=== PATIENT | female | born 1975 | race Caucasian/White ===

== ENCOUNTER 2017-08-21 20:51 | Emergency (ER) | payer OTHER ==
[~2017-08-21] VITALS: Ht 165.1 cm; Wt 105.0 kg
[2017-08-21 20:54] VITALS: TEMP 36.7; Ht 165.1 cm; Wt 105.0 kg
--- NOTE | 2017-08-21 21:24 | DIAGNOSTIC IMAGING REPORT ---
LEFT SHOULDER 3 VIEWS HISTORY: left shoulder pain COMPARISON: None. FINDINGS: There is no fracture or dislocation. Soft tissues are unremarkable. The left clavicle is intact. IMPRESSION: No fracture or dislocation within the left shoulder. Electronically signed by: Black Austin M.D. 08/21/2017 9:23 PM Dictated Date/Time: 08/21/2017 9:22 PM
--- NOTE | 2017-08-21 21:32 | EMERGENCY ROOM VISIT NOTE ---
ED Visit Note First contact with patient: 20:58 I have seen and examined this patient with Aftab Richard and generally agree with the treatment plan as discussed. Allergies Coded Allergies: Penicillins (Verified Allergy, Unknown, 05/22/16) Uncoded Allergies: AMOXICILLIN (Allergy, Unknown, 12/18/02) FEATHERS (Allergy, Unknown, 07/17/02) Vital Signs Date Time Temp Pulse Resp B/P (MAP) Pulse Ox O2 Delivery O2 Flow Rate FiO2 08/21/17 20:54 36.7 111 18 174/114 98 Room Air Departure Information Referrals Cinthia Gramajo C.R.N.P. (PCP) Patient Instructions My [facility]
[2017-08-21] MEDS ORDERED: ACETAMINOPHEN 500 MG TAB PO STA (21:58)
[2017-08-21] MEDS ORDERED: IBUPROFEN 600 MG TAB PO STA (21:58)
[2017-08-21 22:10] VITALS: BP 174/98; PULSE 95; O2SAT 99
--- NOTE | 2017-08-21 23:43 | EMERGENCY ROOM VISIT NOTE ---
ED Visit Note First contact with patient: 20:58 CHIEF COMPLAINT: Shoulder pain HISTORY OF PRESENT ILLNESS: This 42-year-old female patient presents to the emergency department complaining of pain in the left shoulder for the past 2 days. There is some limitation of motion of the arm because of the pain. The pain is moderate, constant and increases with motion of the hand and arm. The patient states the pain is dull and 7/10. The patient has taken nothing for relief of the pain. No previous significant previous shoulder disease or injury. No numbness or tingling. No neck and no back pain. No chest pain or shortness of breath. No abdominal pain or nausea/vomiting. No cough. REVIEW OF SYSTEMS: A 6 system review of systems was performed with positives and pertinent negatives in the HPI. ALLERGIES: See EMR MEDICATIONS: See EMR PMH: See EMR SOCIAL HISTORY: Lives locally with family PHYSICAL EXAM: Vital Signs: Reviewed nurse's notes . GENERAL: White female, in no acute distress, but appears to be in pain, well-developed, well-nourished. MUSCULOSKELETAL: There is no deformity in the contour of the left shoulder and there are no jesse deformities noted. There is no sulcus sign. There is tenderness over the superior aspect of the supraspinatus into the lateral aspect of the deltoid. The patient's range of motion is mildly limited. Supraspinatus strength 4/5. There is no clavicle tenderness. No tenderness of the humerus, elbow, wrist, or hand. Olericulture Teacher strength 5/5. Radial pulse 2+. NECK: No tenderness to palpation over the cervical spine.. HEART: Regular rate and rhythm without murmurs gallops or rubs. LUNGS: Clear to auscultation bilaterally without wheezes, rales or rhonchi. No accessory muscle use. No retractions. NEURO: The patient is alert and oriented to person, place, and time. Normal sensation to light and sharp touch. Capillary refill less than 2 seconds. LEFT SHOULDER 3 VIEWS HISTORY: left shoulder pain COMPARISON: None. FINDINGS: There is no fracture or dislocation. Soft tissues are unremarkable. The left clavicle is intact. IMPRESSION: No fracture or dislocation within the left shoulder. EMERGENCY DEPARTMENT COURSE: Physical exam and history were performed. Nursing notes and EMR were reviewed. The patient has some left shoulder pain for the past few days. The pain is reproducible on palpation and with range of motion. X-rays were obtained and reviewed by myself and radiology as showing no acute fracture or dislocation. The case was discussed with my attending physician, Dr. Bess, who also independently evaluated the patient. She was given ibuprofen and Tylenol here in the department. She will be discharged home to follow with orthopedics. The patient does have an elevated blood pressure reading at discharge and will need to see her primary care physician for this. The patient was pleased with this plan and voiced understanding. She rated her discomfort 2/10 at the time of departure. Current/Historical Medications No Active Prescriptions or Reported Meds Allergies Coded Allergies: Amoxicillin (Verified Allergy, Unknown, Unknown, 08/21/17) Penicillins (Verified Allergy, Unknown, 05/22/16) Uncoded Allergies: FEATHERS (Allergy, Unknown, 07/17/02) Vital Signs Date Time Temp Pulse Resp B/P (MAP) Pulse Ox O2 Delivery O2 Flow Rate FiO2 08/21/17 22:10 95 20 174/98 99 08/21/17 20:54 36.7 111 18 174/114 98 Room Air Medications Administered Medications (Trade) Dose Ordered Sig/Pushpa Route Start Time Stop Time Status Last Admin Dose Admin Acetaminophen (Tylenol Tab) 1,000 mg NOW STAT PO 08/21/17 21:58 08/21/17 21:59 DC 08/21/17 22:06 1,000 MG Ibuprofen (Motrin Tab) 600 mg NOW STAT PO 08/21/17 21:58 08/21/17 21:59 DC 08/21/17 22:06 600 MG Departure Information Impression Primary Impression: Left shoulder pain Dispostion Home / Self-Care Condition GOOD Prescriptions No Active Prescriptions or Reported Meds Referrals Juan Francisco Mendosa MD Forms HOME CARE DOCUMENTATION FORM, IMPORTANT VISIT INFORMATION Patient Instructions My [facility] Additional Instructions You were seen and evaluated today on an emergency basis only. This is not a substitute for, or an effort to provide, complete comprehensive medical care. It is not possible to recognize and treat all injuries or illnesses in a single emergency department visit. For this reason it is recommended that you followup with [facility] orthopedics, Dr Mendosa's office, with any ongoing or persisting symptoms. For baseline pain relief you may alternate ibuprofen and acetaminophen every 4 hours for pain control. Take 600 mg ibuprofen (Advil) and then 4 hours later take 1000 mg acetaminophen (Tylenol). Do not take more than 3000 mg acetaminophen in a single day. You are welcome to return to the emergency department anytime with new, worsening, or concerning symptoms.
== END 2017-08-21 22:13 | disposition home or self-care (01) ==
LOC: C.EDB 20:52 → C.EDD 22:13
DX: M25.512 Pain in left shoulder (principal); Z88.0 Allergy status to penicillin; Z91.048 Other nonmedicinal substance allergy status

== ENCOUNTER 2017-08-25 16:13 | Emergency (ER) | payer OTHER ==
[~2017-08-25] VITALS: Ht 165.1 cm; Wt 102.7 kg
[2017-08-25 16:16] VITALS: TEMP 36.8; Ht 165.1 cm; Wt 102.7 kg
[2017-08-25] MEDS ORDERED: LOSA50TA6 PO (16:42)
--- NOTE | 2017-08-25 16:44 | EMERGENCY ROOM VISIT NOTE ---
History First contact with patient: 16:25 Chief Complaint: ARM PAIN Stated Complaint: LEFT ARM PAIN History of Present Illness The patient is a 42 year old female who presents to the Emergency Room with complaints of left upper extremity tingling. The patient reports that she was here recently with complaint of left shoulder pain. She denies any recent injury to her neck or shoulder. The patient reports that she does sleep on the left shoulder, and has worsened symptoms when she wakes up in the morning. She did see her PCP on Sunday and received a prescription for a muscle relaxer and anti-inflammatory. She did not get these prescriptions filled. She was provided a prescription for [email or web address] for blood pressure, which she has been taking. She reports that her blood pressure has dropped into the 150s over 90s. The patient rates her overall discomfort a 3 out of 10. The patient is right-hand dominant. Review of Systems 10 system review was performed and was negative except for pertinent positives and negatives as indicated in history of present illness Past Medical/Surgical History Surgical Problems: (1) History of tubal ligation Family History Unremarkable Social History Smoking Status: Never Smoker Alcohol Use: none Marital Status: single, in relationship Housing Status: lives with family, lives with significant other Occupation Status: employed Current/Historical Medications No Active Prescriptions or Reported Meds Physical Exam Vital Signs Date Time Temp Pulse Resp B/P (MAP) Pulse Ox O2 Delivery O2 Flow Rate FiO2 08/25/17 16:16 36.8 113 18 172/99 97 Room Air Physical Exam CONSTITUTIONAL: Healthy and well nourished. Alert and oriented X 3 with positive affect. Patient does not appear in any acute distress. HEENT: Normocephalic, atraumatic. Pupils equal, round and reactive. NECK: Full active range of motion without discomfort. No focal tenderness to palpation through the lower central cervical spine or cervical musculature. RESPIRATORY: Clear to auscultation bilaterally with no wheezing, crackles, rhonchi or stridor. CARDIOVASCULAR: Regular rate and rhythm with no murmurs, rubs or gallops. MUSCULOSKELETAL: Examination shows mild tenderness to palpation with full internal and external rotation of the shoulder. She has no focal tenderness over the acromioclavicular joint, bicipital groove or posterior shoulder region. Negative drop arm test. No tenderness to palpation through the left trapezius. Distal pulses are intact. Equal handgrip bilaterally. INTEGUMENTARY: No rash or other significant dermatologic conditions noted. NEUROLOGIC: No focal neurologic deficits noted. Left upper extremity is sensory intact. Medical Decision & Procedures ED Course Patient history and physical exam were performed. Nurse's notes were reviewed. Vital signs were reviewed, showing a blood pressure of 172/99. As indicated in HPI, the patient was recently started on blood pressure medicine. The patient was encouraged to continue follow-up with her PCP to discuss further treatment of her paresthesias. She was encouraged to avoid sleeping on her left side. It is possible that she may be compressing the axillary plexus, causing the symptoms. She was instructed to return to the emergency department for any developing chest pain, shortness of breath, nausea, diaphoresis or other concerns. The patient was happy with plan of care, and voiced understanding of all discharge instructions. Medical Decision Blood Pressure Screening Patient's blood pressure: Elevated blood pressure Impression Primary Impression: Paresthesia of left upper extremity Departure Information Dispostion Home / Self-Care Prescriptions No Active Prescriptions or Reported Meds Forms HOME CARE DOCUMENTATION FORM, IMPORTANT VISIT INFORMATION Patient Instructions My [facility] Additional Instructions Avoid sleeping on your left shoulder. Get your prescriptions filled for your muscle relaxer and anti-inflammatory to see if this helps with your symptoms. You may also take Tylenol 1000 mg every 6-8 hours for additional relief. Follow-up with your family doctor for further reevaluation in 1 week. Suggest keeping a blood pressure journal twice daily to keep track of your blood pressures.
[2017-08-25 16:58] VITALS: BP 147/103; PULSE 92; O2SAT 96
== END 2017-08-25 17:05 | disposition home or self-care (01) ==
LOC: C.EDB 16:15 → C.EDD 17:05
DX: R20.2 Paresthesia of skin (principal)

== ENCOUNTER 2017-09-08 19:53 | Emergency (ER) | payer OTHER ==
[~2017-09-08] VITALS: Ht 160 cm; Wt 101.5 kg
[~2017-09-08 19:53] MED LIST: LOSA50TA6 PO
[2017-09-08 19:58] VITALS: TEMP 36.7; Ht 160 cm; Wt 101.5 kg
--- NOTE | 2017-09-08 20:17 | EMERGENCY ROOM VISIT NOTE ---
History First contact with patient: 20:01 Chief Complaint: ARM PAIN Stated Complaint: LEFT ARM PAIN History of Present Illness The patient is a 42 year old female who presents to the Emergency Room with complaints of left shoulder pain down into the left hand that started last night. The patient denies any injury. She has taken Aleve with moderate pain relief. She denies any pain into her chest. She denies any difficulty breathing. The patient was seen in the emergency department a few weeks ago for similar pain. An x-ray of the shoulder was performed. No abnormalities were noted. The patient is also complaining of a small bump that she noted in her left bicep area. This morning. It is not painful. No fever or chills. She denies any rash. Review of Systems 6 system review negative. Please see pertinent positives in the history of present illness section. Past Medical/Surgical History Surgical Problems: (1) History of tubal ligation Social History Smoking Status: Current Every Day Smoker Alcohol Use: none Marital Status: single, in relationship Housing Status: lives with family, lives with significant other Occupation Status: employed Current/Historical Medications Scheduled Cyclobenzaprine Hcl (Flexeril), 10 MG PO TID Losartan Potassium (Cozaar), 100 MG PO DAILY Physical Exam Vital Signs Date Time Temp Pulse Resp B/P (MAP) Pulse Ox O2 Delivery O2 Flow Rate FiO2 09/08/17 22:04 81 18 144/87 96 09/08/17 19:58 36.7 76 18 150/89 98 Room Air Physical Exam VITALS: Vitals are noted on the nurse's note and reviewed by myself. Vital signs stable. GENERAL: 42-year-old female, in no acute distress, nondiaphoretic, well- developed well-nourished. SKIN: The skin was without rashes, erythema, edema, or bruising. HEAD: Normocephalic atraumatic. NECK: Tenderness to palpation noted in the left upper trapezius muscle. No tenderness over the cervical spine. Negative Spurling sign bilaterally. HEART: Regular rate and rhythm without murmurs gallops or rubs. LUNGS: Clear to auscultation bilaterally without wheezes, rales or rhonchi. No accessory muscle use. MUSCULOSKELETAL: Mild tenderness to palpation over the left anterior shoulder. Radial pulse +2. Electronic Induction Hardener strength 5/5. Sensation in the left upper extremity is intact. There is a 1 cm, mobile palpable mass noted over the distal aspect of the left bicep. No associated erythema, warmth or tenderness. Biceps strength 5/5. Strength 5/5 throughout. NEURO: Patient was alert and oriented to person place and time. Normal sensation to touch. No focal neurological deficits. Medical Decision & Procedures ER Provider Diagnostic Interpretation: upper extremity US IMPRESSION: 1. 2.2 cm minimally hyperechoic mass consistent with a lipoma at the site of clinical concern. Electronically signed by: Juan Francisco Stover M.D. 09/08/2017 10:25 PM Dictated Date/Time: 09/08/2017 10:23 PM C spine xrays IMPRESSION: Reversal of normal cervical lordosis, unchanged. Otherwise normal cervical radiographs allowing for incomplete visualization of C7. Electronically signed by: Juan Francisco Stover M.D. 09/08/2017 9:21 PM Dictated Date/Time: 09/08/2017 9:19 PM ED Course The patient was seen and examined She declined pain medication Imaging was performed and reviewed Upon reevaluation, the patient was resting comfortably in bed. We discussed the results of her workup. She voiced understanding, was comfortable being discharged home. Discharge instructions were reviewed, and she was discharged in good condition Medical Decision Differential diagnosis: Cervical radiculopathy, muscle spasm, muscle pain, contusion, ligamentous injury, brachial plexus injury, a lipoma, malignancy, foreign body, This patient is a 42-year-old female that presents complaining of left shoulder pain down into her hand. She is also complaining of a palpable mass in the bicep. Her symptoms have been going on since last night. On exam, she has full strength in the left shoulder. There is some tenderness to palpation over the upper left trapezius muscle. She also had a small, mobile mass overlying the distal bicep. An ultrasound of this was performed and consistent with a lipoma. Imaging of the shoulder was already performed. She denied any injury. My thought was this is possibly radiculopathy from her cervical spine. Imaging of her cervical spine reveals reversal of normal lordosis. Otherwise, no acute abnormalities were noted. The patient will be treated with a short course of muscle relaxants. She will also continue anti-inflammatories and apply heat. I encouraged her to follow-up with her primary care physician for further treatment. She was in agreement with this plan. She agrees to return with any worsening symptoms. This chart was completed in part utilizing [employer] Speech Voice Recognition software. Attempts were made to minimize the grammatical errors, random word insertions, pronoun errors and incomplete sentences. Any formal questions or concerns about the content, text or information contained within the body of this dictation should be directly addressed to the provider for clarification. Medication Reconcilliation Current Medication List: was personally reviewed by me Blood Pressure Screening Patient's blood pressure: Elevated blood pressure Blood pressure disposition: Did not require urgent referral Impression Primary Impression: Left arm pain Additional Impression: Lipoma Departure Information Dispostion Home / Self-Care Condition GOOD Prescriptions Cyclobenzaprine Hcl (FLEXERIL) 10 Mg Tab 10 MG PO TID for Muscle Spasms, #15 TAB Prov: Lynsey Lombardi PA-C 09/08/17 Referrals No Doctor, Assigned (PCP) Patient Instructions My [facility] Additional Instructions You were evaluated in the emergency department for shoulder pain. It is possible that this is muscular in nature. Please apply moist heat to the area every 6 hours as needed for discomfort over the next 48 hours. Ibuprofen 600 mg and/or Tylenol 1000 mg every 8 hours for additional pain control You may also alternate these medications for more effective pain relief: Ibuprofen --4 HRS--> Tylenol --4 HRS--> ibuprofen --4 HRS--> Tylenol .... Flexeril every 8 hours as needed for muscle spasm/pain. Please also do not drink alcohol or drive while taking this medication. Please follow-up with your primary care physician to be rechecked this week. Do not hesitate to return to the emergency department with any new or worsening symptoms Problem Qualifiers
[2017-09-08] MEDS ORDERED: LOSA1TAB38 PO (20:30)
--- NOTE | 2017-09-08 21:22 | DIAGNOSTIC IMAGING REPORT ---
C-SPINE ROUTINE 4 OR 5 VIEWS CLINICAL HISTORY: 42 years-old Female presenting with Left sided neck pain down L shoulder/arm. TECHNIQUE: Lateral, bilateral oblique, frontal, and open-mouth odontoid views of the cervical spine were obtained. COMPARISON: 07/09/2011. FINDINGS: Slight reversal of normal cervical lordosis, unchanged. The C7 vertebral body is incompletely visualized. This limits evaluation. Vertebral bodies maintain normal height and alignment. Intervertebral disc heights preserved. No gross evidence of degenerative change. No osseous neural foraminal narrowing. No compression deformity or evidence of subluxation. Lateral masses of C1 articulate normally with C2. Normal atlantodental interval. No prevertebral soft tissue swelling. IMPRESSION: Reversal of normal cervical lordosis, unchanged. Otherwise normal cervical radiographs allowing for incomplete visualization of C7. Electronically signed by: Juan Francisco Stover M.D. 09/08/2017 9:21 PM Dictated Date/Time: 09/08/2017 9:19 PM
[2017-09-08] MEDS ORDERED: CYCL10TA6 PO (21:49)
[2017-09-08 22:04] VITALS: BP 144/87; PULSE 81; O2SAT 96
--- NOTE | 2017-09-08 22:26 | DIAGNOSTIC IMAGING REPORT ---
L EXTREMITY NONVASCULAR LIMITED CLINICAL HISTORY: 42 years-old Female presenting with mobile mass of distal bicep. TECHNIQUE: Real-time grayscale Doppler ultrasound imaging of the left upper arm was performed for a focused evaluation at the site of clinical concern. Color Doppler ultrasound imaging was also performed. COMPARISON: None. FINDINGS: 2.1 x 2.2 x 0.7 cm minimally hyperechoic mass at the site of clinical concern centered in the subcutaneous fat immediately subjacent to the cutis. This is superficial to the biceps muscle complex. No hyperemia. No associated fluid. IMPRESSION: 1. 2.2 cm minimally hyperechoic mass consistent with a lipoma at the site of clinical concern. Electronically signed by: Juan Francisco Stover M.D. 09/08/2017 10:25 PM Dictated Date/Time: 09/08/2017 10:23 PM
== END 2017-09-08 22:05 | disposition home or self-care (01) ==
LOC: C.EDB 19:54 → C.EDD 22:05
DX: M79.602 Pain in left arm (principal); D17.9 Benign lipomatous neoplasm, unspecified; F17.200 Nicotine dependence, unspecified, uncomplicated

== ENCOUNTER 2017-09-24 19:34 | Emergency (ER) | payer OTHER ==
[~2017-09-24] VITALS: Ht 160 cm; Wt 99.8 kg
[2017-09-24 19:38] VITALS: TEMP 37; Ht 160 cm; Wt 99.8 kg
--- NOTE | 2017-09-24 20:02 | EMERGENCY ROOM VISIT NOTE ---
History Report prepared by Braydon: Holden Vincent Under the Supervision of: Dr. Flako Bess M.D. First contact with patient: 19:47 Chief Complaint: ARM PAIN Stated Complaint: LEFT ARM PAIN History of Present Illness The patient is a 42 year old female who presents to the Emergency Room with complaints of constant upper, left arm discomfort beginning three weeks ago. The patient states she was previously evaluated for similar symptoms three weeks ago and was told her blood pressure was elevated. She reports pressing on her inner wrist increases her discomfort. The patient notes she has been taking Aleve for her pain and took her last dose two hours ago. She reports she followed-up with her PCP and was placed on blood pressure medication. The patient notes she has not missed a dose of her medication. She denies wrist pain with motion. Source of History: patient Onset: three weeks ago Position: arm (upper, left) Timing: constant Modifying Factors (Worsening): other (pressing the inner wrist) Note: Denies: wrist pain with movement Review of Systems See HPI for pertinent positives & negatives. A total of 10 systems reviewed and were otherwise negative. Past Medical & Surgical Surgical Problems: (1) History of tubal ligation Family History Diabetes mellitus Hypertension Social History Smoking Status: Current Every Day Smoker Alcohol Use: none Marital Status: single, in relationship Housing Status: lives with family, lives with significant other Occupation Status: employed Current/Historical Medications Scheduled Losartan Potassium (Cozaar), 100 MG PO DAILY Scheduled PRN Naproxen (Aleve), 440 MG PO BID PRN for Headache or Pain Allergies Coded Allergies: Amoxicillin (Verified Allergy, Unknown, Unknown, 08/25/17) Penicillins (Verified Allergy, Unknown, 08/25/17) Uncoded Allergies: FEATHERS (Allergy, Unknown, 07/17/02) Physical Exam Vital Signs Date Time Temp Pulse Resp B/P (MAP) Pulse Ox O2 Delivery O2 Flow Rate FiO2 09/24/17 21:02 73 18 140/90 98 09/24/17 19:38 37.0 75 18 145/91 97 Room Air Physical Exam GENERAL: Awake, alert, well-appearing, in no acute distress HENT: Normocephalic, atraumatic. Oropharynx unremarkable. EYES: Normal conjunctiva. Sclera non-icteric. NECK: Supple. No nuchal rigidity. FROM. No JVD. RESPIRATORY: Clear to auscultation. CARDIAC: Regular rate, normal rhythm. Extremities warm and well perfused. Pulses equal. ABDOMEN: Soft, non-distended. No tenderness to palpation. No rebound or guarding. No masses. RECTAL: Deferred. MUSCULOSKELETAL: Chest examination reveals no tenderness. The back is symmetrical on inspection without obvious abnormality. There is no CVA tenderness to palpation. No joint edema. Normal ROM of the left shoulder and arm. Lipoma of the left upper arm. LOWER EXTREMITIES: Calves are equal size bilaterally and non-tender. No edema. No discoloration. NEURO: Normal sensorium. No sensory or motor deficits noted. SKIN: No rash or jaundice noted. Medical Decision & Procedures ER Provider Diagnostic Interpretation: X-ray results as stated below per interpretation by me and the radiologist: LEFT HUMERUS 2 VIEWS HISTORY: Pt c/o left arm pain COMPARISON: Left shoulder 08/21/2017. FINDINGS: There is no fracture or dislocation. Soft tissues are unremarkable. No radiopaque foreign bodies. IMPRESSION: No fractures. Electronically signed by: Black Austin M.D. 09/24/2017 8:27 PM Dictated Date/Time: 09/24/2017 8:26 PM ED Course 1950: Past medical records reviewed. The patient was evaluated in room C11B. A complete history and physical examination was performed. 2050: Upon reexamination the patient is resting. I offered her a sling, and she denied. I discussed results and treatment plan with the patient. She verbalizes agreement and understanding. The patient is ready for discharge. Medical Decision Differential diagnosis: Etiologies such as fracture, dislocation, neurovascular compromise, compartment syndrome, soft tissue injury, as well as others were entertained. This is a 42-year-old female who presents emergency department complaining of left arm pain along with hypertension I will note that the arm pain is muscle skeletal in nature. In addition is the same pain she signed in for 2 weeks ago but has not followed up with orthopedics. The patient is also concerned about her hypertension however she was recently started on a blood pressure medication and notes she occasionally gets dizzy on it. Because of this and because her blood pressure is not very high I am reluctant to place her on any further medication. I did stress the need for follow-up with orthopedics for continuing arm pain. I also recommended a sling for her arm which she refused. Patient was in agreement with the treatment plan. Medication Reconcilliation Current Medication List: was personally reviewed by me Blood Pressure Screening Patient's blood pressure: Elevated blood pressure Blood pressure disposition: Referred to PCP Impression Primary Impression: Left arm pain Additional Impression: Hypertension Scribe Attestation The scribe's documentation has been prepared under my direction and personally reviewed by me in its entirety. I confirm that the note above accurately reflects all work, treatment, procedures, and medical decision making performed by me. Departure Information Dispostion Home / Self-Care Referrals Erik Rae M.D. Shannon, Dennis, M.D. Forms HOME CARE DOCUMENTATION FORM, IMPORTANT VISIT INFORMATION Patient Instructions ED Hypertension Poss, ED FIORELLA, Hypertension Control, Hypertension Dc, [facility] Additional Instructions Follow up with DR rae's office Take 600 mg Ibuprofen every 6 hours You have been examined and treated today on an emergency basis only. This is not a substitute for, or an effort to provide, complete comprehensive medical care. It is impossible to recognize and treat all injuries or illnesses in a single emergency department visit. It is therefore important that you follow up closely with Dr Townsend. Call as soon as possible for an appointment. Thank you for your time and consideration. I look forward to speaking with you again soon. Please don't hesitate to call us if you have any questions. Problem Qualifiers Additional Impression: Hypertension Hypertension type: unspecified Qualified Codes: I10 - Essential (primary) hypertension
--- NOTE | 2017-09-24 20:29 | DIAGNOSTIC IMAGING REPORT ---
LEFT HUMERUS 2 VIEWS HISTORY: Pt c/o left arm pain COMPARISON: Left shoulder 08/21/2017. FINDINGS: There is no fracture or dislocation. Soft tissues are unremarkable. No radiopaque foreign bodies. IMPRESSION: No fractures. Electronically signed by: Black Austin M.D. 09/24/2017 8:27 PM Dictated Date/Time: 09/24/2017 8:26 PM
[2017-09-24] MEDS ORDERED: LOSA1TAB38 PO (20:30)
[2017-09-24] MEDS ORDERED: NAPR1TAB9 PO (20:42)
[2017-09-24 21:02] VITALS: BP 140/90; PULSE 73; O2SAT 98
== END 2017-09-24 21:03 | disposition home or self-care (01) ==
LOC: C.EDB 19:35 → C.EDC 21:03
DX: M79.602 Pain in left arm (principal); I10 Essential (primary) hypertension; D17.22 Benign lipomatous neoplasm of skin and subcutaneous tissue of left arm; F17.200 Nicotine dependence, unspecified, uncomplicated; Z98.51 Tubal ligation status; Z88.0 Allergy status to penicillin; Z91.09 Other allergy status, other than to drugs and biological substances; Z83.3 Family history of diabetes mellitus; Z82.49 Family history of ischemic heart disease and other diseases of the circulatory system

== ENCOUNTER 2017-10-01 17:32 | Emergency (ER) | payer OTHER ==
[~2017-10-01] VITALS: Ht 160 cm; Wt 98.0 kg
[~2017-10-01 17:32] MED LIST changes: +LOSA1TAB38 PO; -LOSA50TA6 PO; +NAPR1TAB9 PO
[2017-10-01 17:36] VITALS: BP 146/85; PULSE 98; TEMP 36.7; O2SAT 98; Ht 160 cm; Wt 98.0 kg
--- NOTE | 2017-10-01 18:13 | DIAGNOSTIC IMAGING REPORT ---
L RIBS UNILATERAL WITH PA CHEST CLINICAL HISTORY: L rib pain pain COMPARISON STUDY: None FINDINGS: Negative chest. Negative left ribs. IMPRESSION: Negative study. The above report was generated using voice recognition software. It may contain grammatical, syntax or spelling errors. Electronically signed by: Kolton Devine M.D. 10/01/2017 6:12 PM Dictated Date/Time: 10/01/2017 6:10 PM
--- NOTE | 2017-10-01 20:06 | EMERGENCY ROOM VISIT NOTE ---
History First contact with patient: 17:37 Chief Complaint: RIB PAIN Stated Complaint: L RIB PAIN History of Present Illness The patient is a 42 year old female who presents to the Emergency Room with complaints of left rib pain. Patient reports that she noticed that discomfort when walking this morning. She reports that the pain is worsened when she pushes on the ribs and bends over. She denies any recent injury to the chest wall. She denies any chest tightness, shortness of breath or pain radiating into the shoulder or neck. She denies any recent upper respiratory infection or other illness. She rates her discomfort a 4 out of 10. The patient reports that she has an appointment this Sunday with her PCP. Review of Systems 10 system review was performed and was negative except for pertinent positives and negatives as indicated in history of present illness Past Medical/Surgical History Surgical Problems: (1) History of tubal ligation Family History Diabetes mellitus Hypertension Social History Smoking Status: Current Every Day Smoker Alcohol Use: none Marital Status: single, in relationship Housing Status: lives with family, lives with significant other Occupation Status: employed Current/Historical Medications Scheduled Losartan Potassium (Cozaar), 100 MG PO DAILY Scheduled PRN Naproxen (Aleve), 440 MG PO BID PRN for Headache or Pain Physical Exam Vital Signs Date Time Temp Pulse Resp B/P (MAP) Pulse Ox O2 Delivery O2 Flow Rate FiO2 18 17:36 36.7 98 20 146/85 98 Room Air Physical Exam CONSTITUTIONAL: Healthy and well nourished. Alert and oriented X 3 with positive affect. Patient does not appear in any acute distress. HEENT: Normocephalic, atraumatic. Pupils equal, round and reactive. NECK: Full active range of motion without discomfort. RESPIRATORY: Clear to auscultation bilaterally with no wheezing, crackles, rhonchi or stridor. The breathing does not cause any discomfort. CARDIOVASCULAR: Regular rate and rhythm with no murmurs, rubs or gallops. GASTROINTESTINAL: Bowel sounds present in all quadrants. Abdomen is soft and nontender to palpation. MUSCULOSKELETAL: Examination shows mild tenderness to palpation across the left anterior chest wall. No ecchymosis or soft tissue edema noted. She has no tenderness through the posterior ribs, costochondral joints or sternum. She has no worsening pain with range of motion of the left shoulder. INTEGUMENTARY: No rash or other significant dermatologic conditions noted. Specifically the patient does not have any dermatomal rash over the torso or back. NEUROLOGIC: No focal neurologic deficits noted. Medical Decision & Procedures ER Provider Diagnostic Interpretation: My interpretation of an ECG shows a sinus tachycardia [address] elevation or other conduction abnormalities. On my exam, the patient's pulse rate was 88 bpm. My interpretation of left rib x-rays with a PA chest view does not show any obvious rib fractures, pneumothorax, cardiomegaly or consolidations. Radiologist report is as follows: L RIBS UNILATERAL WITH PA CHEST CLINICAL HISTORY: L rib pain pain COMPARISON STUDY: None FINDINGS: Negative chest. Negative left ribs. IMPRESSION: Negative study. ED Course Patient history and physical exam were performed. Nurse's notes were reviewed. Vital signs were reviewed, showing an elevated blood pressure of 146/85. O2 saturation is 98% on room air. Triage pulse rate was 98 bpm. An ECG was performed prior to my examination of the patient, and was 104 bpm. On my exam, pulse rate by bedside pulse oximeter was 88 bpm. Patient does have reproducible pain with palpation of the left anterior ribs. I did elect to also do rib x-rays with a PA chest view that were normal as well. At this point, I explained that symptoms are likely secondary to something going on within the chest wall. She was encouraged to intermittently apply ice. Ibuprofen or Tylenol as needed for pain. She was instructed to keep her doctor's appointment as scheduled. Return to the emergency department for any worsening pain, shortness of breath, palpitations, diaphoresis or pain radiating into the abdomen, shoulder or neck. The patient was happy with plan of care, and voiced understanding of all discharge instructions. She denied any significant pain at the conclusion of my exam. Medical Decision See previous section Impression Primary Impression: Left anterior chest wall pain Departure Information Referrals Jeremias Townsend M.D. (PCP) Patient Instructions My [facility]
== END 2017-10-01 19:02 | disposition home or self-care (01) ==
LOC: C.EDB 17:34 → C.EDD 19:02
DX: R07.89 Other chest pain (principal); Z98.51 Tubal ligation status; Z83.3 Family history of diabetes mellitus; Z82.49 Family history of ischemic heart disease and other diseases of the circulatory system; F17.210 Nicotine dependence, cigarettes, uncomplicated; Z79.899 Other long term (current) drug therapy

== ENCOUNTER 2017-10-12 17:40 | Emergency (ER) | payer OTHER ==
[~2017-10-12] VITALS: Ht 160 cm; Wt 96.3 kg
[2017-10-12 17:42] VITALS: TEMP 36.7; Ht 160 cm; Wt 96.3 kg
[2017-10-12] MEDS ORDERED: DICLOFENAC SOD 1% GEL 100 GM TUBE EXT STA (18:04)
--- NOTE | 2017-10-12 18:11 | EMERGENCY ROOM VISIT NOTE ---
ED Visit Note First contact with patient: 17:47 CHIEF COMPLAINT: Left arm pain HISTORY OF PRESENT ILLNESS: This 42-year-old female patient presents to the emergency department, ambulatory, complaining of left arm pain and intermittent numbness for several weeks. She states it seemed to worsen today. She states the numbness starts in her posterior upper arm and shoots down into her #2 and # 4 digit. She does have tenderness on palpation. She states this pain is consistent and similar to pain she has had previously. She has not seen orthopedics, as she was has been waiting for them to call her to schedule the appointment. The patient states she has been taking 2 Aleve twice daily for headaches, and denies any injury. The pain is not exacerbated or alleviated by anything. She denies any neck pain, chest pain, dyspnea, abdominal pain, recent illness, diarrhea, constipation, upper respiratory infection symptoms, or other concerning symptoms. She states she is concerned for her heart, as she has a history of hypertension and is now having left arm pain. REVIEW OF SYSTEMS: A 10 system review of systems was performed with positives and pertinent negatives listed in the history of present illness. All other systems were reviewed and are negative. ALLERGIES: None MEDICATIONS: Losartan,naproxen PMH: Hypertension, left arm pain SOCIAL HISTORY: The patient lives locally with family. She denies drug, alcohol use. She admits to smoking 1 pack of cigarettes per day. PHYSICAL EXAM: VITALS: Vitals are noted on the nurse's note and reviewed by myself. Vital signs stable. GENERAL: This is a 42-year-old white female, in no acute distress, nondiaphoretic, well-developed well-nourished. SKIN: The skin was without rashes, erythema, edema, or bruising. There is no tenting of the skin. Capillary reflex less than 2 seconds. HEAD: Normocephalic atraumatic. NECK: Small lipoma noted in the left lateral aspect of the neck. Supple without nuchal rigidity. No lymphadenopathy. No thyromegaly. Cervical spine is nontender. No JVD. HEART: Regular rate and rhythm without murmurs gallops or rubs. LUNGS: Clear to auscultation bilaterally without wheezes, rales or rhonchi. No dullness to percussion. No retractions or accessory muscle use. ABDOMEN: Positive bowel sounds x 4. Normal tympanic percussion. Soft, nontender, without masses or organomegaly. Gonzalez sign negative. No guarding or rebound tenderness. MUSCULOSKELETAL: Tenderness of the left humerus on palpation. No muscle atrophy , erythema, or edema noted. Full range of motion without joint tenderness in all extremities. Strength 5/5 throughout, specifically of the bilateral upper extremities. Negative Tinel's and Phalen's sign. NEURO: Patient was alert and oriented to person place and time. Normal sensation to light and sharp touch of the bilateral upper extremities. Deep tendon reflexes 2+ throughout. No focal neurological deficits. EMERGENCY DEPARTMENT COURSE: The patient was seen and evaluated as above. Previous medical records reviewed. EKG performed and interpreted by myself showing ventricular rate of 85 bpm. Normal sinus rhythm, no ST changes, ischemic changes, or ectopy noted. This was compared to EKG performed last month which showed incomplete right bundle branch block. This has since resolved. No other significant change noted. I did review the patient's previous imaging. She has had multiple x-rays and ultrasound performed of the left upper extremity. I do not feel that it is necessary to perform repeat imaging at this time. I discussed the case with Dr. Hernandez. We were in agreement with the assessment and plan. The patient will be given Voltaren gel and strict instructions to contact orthopedics on Sunday. I suspect the lipoma may be impinging her nerve causing some cervical radiculopathy. The patient verbalized understanding. All questions answered to the patient's satisfaction. Discharge instructions reviewed, patient was discharged home in good condition. The patient was seen and evaluated by Dr. Hernandez. I attest that I have personally reviewed the patient's current medication list. Blood Pressure Screening: Patient was found to have a slightly elevated blood pressure due to circumstances. I do not believe that the patient requires hypertension monitoring. Etiologies such as radiculopathy, lipoma, soft tissue injury, fracture, dislocation, neurovascular compromise, compartment syndrome, as well as others were entertained. DIAGNOSIS: Left arm pain The chart was completed utilizing [employer] voice recognition software. Grammatical errors, random word insertions, pronoun errors, and incomplete sentences are an occasional consequence of this system due to software limitations, ambient noise, and hardware issues. Any formal questions or concerns about the content, text, or information contained within the body of this dictation should be directly addressed to the provider for clarification. Current/Historical Medications Scheduled Losartan Potassium (Cozaar), 100 MG PO DAILY Scheduled PRN Naproxen (Aleve), 440 MG PO BID PRN for Headache or Pain Allergies Coded Allergies: Amoxicillin (Verified Allergy, Unknown, Unknown, 10/01/17) Penicillins (Verified Allergy, Unknown, 10/01/17) Uncoded Allergies: FEATHERS (Allergy, Unknown, 07/17/02) Vital Signs Date Time Temp Pulse Resp B/P (MAP) Pulse Ox O2 Delivery O2 Flow Rate FiO2 10/12/17 18:37 73 18 141/85 96 Room Air 10/12/17 17:42 36.7 95 20 155/87 98 Room Air Medications Administered Medications (Trade) Dose Ordered Sig/Pushpa Route Start Time Stop Time Status Last Admin Dose Admin Diclofenac Sodium (Voltaren 1% Top Gel) 1 appln NOW STAT EXT 10/12/17 18:04 10/12/17 18:06 DC 10/12/17 18:37 1 APPLN Departure Information Impression Primary Impression: Arm pain, left Dispostion Home / Self-Care Condition GOOD Referrals Cinthia Gramajo, C.R.N.P. (PCP) Erik Rae M.D. Patient Instructions ED Cervical Radiculopathy, [facility] Additional Instructions You were seen and evaluated in the emergency department today for left arm pain. EKG was negative. I suspect a musculoskeletal etiology. It is possible that the lipoma may be pushing on a nerve, causing your symptoms, and may need to be removed. You need to follow-up with orthopedics for this concern. Ibuprofen(Motrin, Advil) may be used for fever or pain. Use 600mg every six hours as needed. Take with food. Avoid using more than 2400mg in a 24 hour period. Do not use 2400mg per day for more than three consecutive days without physician direction. Prolonged inappropriate use can lead to stomach upset or ulcers. (AND/OR) Acetaminophen(Tylenol) may be used for fever or pain. Use 1000mg every six hours as needed. Avoid using more than 3000mg in a 24 hour period. Use Voltaren gel 4x per day as directed for discomfort. Follow-up with your PCP next week regarding the chronic symptoms. Follow-up with orthopedics for further evaluation of your symptoms. As discussed , you need to contact orthopedics to schedule the appointment. They will not contact you. Return immediately to the emergency department for any nonreproducible pain, swelling, redness, purulent drainage, chest pain, dyspnea, pain with exertion, or other concerning symptoms
[2017-10-12 18:37] VITALS: BP 141/85; PULSE 73; O2SAT 96
[2017-10-12] MEDS ORDERED: LOSA1TAB38 PO (20:30)
[2017-10-12] MEDS ORDERED: NAPR1TAB9 PO (20:42)
--- NOTE | 2017-10-13 00:45 | EMERGENCY ROOM VISIT NOTE ---
ED Visit Note First contact with patient: 17:47 I have personally seen and evaluated the patient with the PA. I agree with the diagnosis and management decisions and have been personally involved in the case. Please see Jewels Rivera PA-C's notes for further details of the history, physical and visit.
== END 2017-10-12 18:42 | disposition home or self-care (01) ==
LOC: C.EDB 17:41 → C.EDD 18:42
DX: M79.602 Pain in left arm (principal); D17.0 Benign lipomatous neoplasm of skin and subcutaneous tissue of head, face and neck; I10 Essential (primary) hypertension; F17.210 Nicotine dependence, cigarettes, uncomplicated; Z88.0 Allergy status to penicillin; Z88.1 Allergy status to other antibiotic agents

== ENCOUNTER → 2017-10-17 | Outpatient (CLI) | payer OTHER ==
[2017-10-17 17:12] LABS: BASO % 0.1 %; BASO ABS # 0.01 K/uL (0-0.2); EOS % 1.4 %; EOS ABS # 0.15 K/uL (0-0.5); HEMATOCRIT 43.3 % (37-47); HEMOGLOBIN 15.2 g/dL (12.0-16.0); IG# 0.02 K/uL (0.00-0.02); LYMPH % 19.2 %; LYMPH ABS # 1.99 K/uL (1.2-3.4); MEAN CELL VOLUME 88.9 fL (80-100); MEAN CORPUSCULAR HEMOGLOBIN 31.2 pg (25-34); MEAN CORPUSCULAR HGB CONC 35.1 g/dl (32-36); MEAN PLATELET VOLUME 10.9 fL (7.4-10.4); MONO ABS # 0.62 K/uL (0.11-0.59); NEUT % 73.1 %; NEUT ABS # 7.56 K/uL (1.4-6.5); PLATELET COUNT 250 K/uL (130-400); RED CELL DISTRIBUTION WIDTH SD 42.5 fL (36.4-46.3); WHITE BLOOD COUNT 10.35 K/uL (4.8-10.8)
--- NOTE | 2017-10-17 17:25 | DIAGNOSTIC IMAGING REPORT ---
KUB HISTORY: R10.12 Left upper quadrant abdominal pain of unknown [id number] COMPARISON: None. FINDINGS: The bowel gas pattern is unremarkable. There are no dilated loops of small bowel to suggest an obstruction. No renal calculi. No ureteral calculi. Calcification in the deep pelvis likely represents a phlebolith. No pneumoperitoneum or pneumatosis. IMPRESSION: Unremarkable KUB. Electronically signed by: Black Austin M.D. 10/17/2017 5:24 PM Dictated Date/Time: 10/17/2017 5:22 PM
[2017-10-17 17:50] LABS: ALKALINE PHOSPHATASE 42 U/L (45-117); ALT/SGPT 25 U/L (12-78); AST/SGOT 16 U/L (15-37); BLOOD UREA NITROGEN 13 mg/dl (7-18); CALCIUM 8.6 mg/dl (8.5-10.1); CARBON DIOXIDE 26 mmol/L (21-32); CREATININE 0.97 mg/dl (0.60-1.20); GLUCOSE 87 mg/dl (70-99); POTASSIUM 3.7 mmol/L (3.5-5.1); SODIUM 137 mmol/L (136-145); TOTAL PROTEIN 6.9 gm/dl (6.4-8.2)
== END | disposition home or self-care (01) ==
LOC: C.RAD1850 15:50
PROVIDERS: ATTEND Internal Medicine
DX: R10.12 Left upper quadrant pain (principal); R10.819 Abdominal tenderness, unspecified site

== ENCOUNTER 2018-01-15 19:39 | Emergency (ER) | payer OTHER ==
[~2018-01-15] VITALS: Ht 162.6 cm; Wt 95.1 kg
[2018-01-15 19:46] VITALS: PULSE 109; TEMP 36.9; O2SAT 98; Ht 162.6 cm; Wt 95.1 kg
--- NOTE | 2018-01-15 19:58 | EMERGENCY ROOM VISIT NOTE ---
History Report prepared by Braydon: Nicole Sanabria Under the Supervision of: Dr. Sav Driver M.D. First contact with patient: 19:50 Chief Complaint: CHEST PAIN Stated Complaint: RIGHT SIDE PAIN History of Present Illness The patient is a 42 year old female who presents to the Emergency Room with complaints of constant upper R side/chest pain beginning earlier today. Pain is moderate and does not radiate. 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 The patient denies any SOB, syncope, or discharge/bleeding from her breast or nipple. She reports she is a smoker. No fall or trauma. No hemoptysis, no recent travel, no recent surgery, no exogenous hormone usage. Source of History: patient Onset: earlier today Position: chest (R uppper side) Quality: other (side/chest pain) Timing: constant Associated Symptoms: No SOB Note: Denies: discharge from breast or nipple Review of Systems See HPI for pertinent positives and negatives. A total of ten systems were reviewed and were otherwise negative. Past Medical & Surgical Surgical Problems: (1) History of tubal ligation Family History Diabetes mellitus Hypertension Social History Smoking Status: Current Every Day Smoker Alcohol Use: none Marital Status: single, in relationship Housing Status: lives with family, lives with significant other Occupation Status: employed Current/Historical Medications Scheduled Losartan Potassium (Cozaar), 100 MG PO DAILY Scheduled PRN Naproxen (Aleve), 440 MG PO BID PRN for Headache or Pain Allergies Coded Allergies: Amoxicillin (Verified Allergy, Unknown, Unknown, 10/01/17) Penicillins (Verified Allergy, Unknown, 10/01/17) Uncoded Allergies: FEATHERS (Allergy, Unknown, 07/17/02) Physical Exam Vital Signs Date Time Temp Pulse Resp B/P (MAP) Pulse Ox O2 Delivery O2 Flow Rate FiO2 01/15/18 20:36 153/87 01/15/18 19:59 98 Room Air 01/15/18 19:46 36.9 109 16 157/95 98 Room Air Physical Exam Physical Exam GENERAL: She is oriented to person, place, and time. She appears well- developed and well-nourished. She does not appear distressed. HENT: Exam performed. Head: Normocephalic and atraumatic. Right Ear: External ear normal. No mastoid tenderness. Left Ear: External ear normal. No mastoid tenderness. Mouth/Throat: The oropharynx is clear and moist. No trismus in the jaw. No dental abscesses or uvula swelling. No oropharyngeal exudate or tonsillar abscesses. EYES: Conjunctivae and EOM are normal. Pupils are equal, round, and reactive to light. Right eye exhibits no discharge. Left eye exhibits no discharge. No scleral icterus. NECK: Normal range of motion. Neck supple. No JVD present. No spinous process tenderness present. No carotid bruit present. No rigidity. No tracheal deviation and normal range of motion present. No Brudzinski's sign and no Kernig 's sign noted. CV: Normal rate, regular rhythm, normal heart sounds and intact distal pulses. There is no peripheral edema. Palpable radial pulses bue. PULM/CHEST: Effort normal and breath sounds normal. No respiratory distress. No stridor. She has no wheezes. She has no rales. Chest Wall: Pain on palpation of right anterior chest, reproducible CC. No crepitus ABD: The abdomen is soft. Bowel sounds are normal. She has no distension. No mass is present. There is no tenderness. There is no rebound, no guarding, no Gonzalez's sign and no tenderness at McBurney's point. Rovsig negative MUSC/SKEL: Normal range of motion. There is no peripheral edema, tenderness or deformity. LYMPH: No cervical adenopathy. NEURO: She is alert and oriented to person, place, and time. She has normal strength. No cranial nerve deficit or sensory deficit. Coordination and gait normal. GCS eye subscore is 4. GCS verbal subscore is 5. GCS motor subscore is 6. Cerebellar tests wnl. SKIN: Skin is warm and dry. She is not diaphoretic. PSYCH: She has a normal mood and affect. Behavior is normal. Judgment and thought content normal. Medical Decision & Procedures ER Provider Diagnostic Interpretation: Radiology results as stated below per my review and radiologist interpretation: CHEST 2 VIEWS ROUTINE CLINICAL HISTORY: pain on palpation R anterior chest s/p cleaning pain COMPARISON STUDY: No previous studies for comparison. FINDINGS: The bones soft tissues and hemidiaphragms are normal. The cardiomediastinal silhouette is normal. The lungs are clear. The pulmonary vasculature is normal. IMPRESSION: Negative chest. The above report was generated using voice recognition software. It may contain grammatical, syntax or spelling errors. Electronically signed by: Kolton Devine M.D. 01/15/2018 8:12 PM Dictated Date/Time: 01/15/2018 8:12 PM ECG Per My Interpretation Indication: chest pain Rate (beats per minute): 160 Rhythm: sinus tachycardia Findings: other ([place] QS QTC intervals within normal limits. no ST elevation or depression.) ED Course 1952: The patient was evaluated in room C10. A complete history and physical exam was performed. 2030: Imaging within normal limits. Pain is thought to be more musculoskeletal as it occurred while she was scrubbing and cleaning and the pain is reproducible on palpation. DISCHARGE - Plan of care discussed with patient and questions answered. The patient was given both verbal and printed discharge instructions. The patient verbalized understanding and ability to comply. The patient is to seek outpatient follow up as noted in the discharge instructions. The patient verbalized understanding and ability to comply. The patient is discharged in stable condition. The patient was instructed to return for worsening symptoms. Medical Decision Imaging within normal limits. Pain is thought to be more musculoskeletal as it occurred while she was scrubbing and cleaning and the pain is reproducible on palpation. DISCHARGE - Plan of care discussed with patient and questions answered. The patient was given both verbal and printed discharge instructions. The patient verbalized understanding and ability to comply. The patient is to seek outpatient follow up as noted in the discharge instructions. The patient verbalized understanding and ability to comply. The patient is discharged in stable condition. The patient was instructed to return for worsening symptoms. Medication Reconcilliation Current Medication List: was personally reviewed by me Blood Pressure Screening Patient's blood pressure: Elevated blood pressure Blood pressure disposition: Elevated BP felt to be situational Impression Primary Impression: Chest wall pain Scribe Attestation The scribe's documentation has been prepared under my direction and personally reviewed by me in its entirety. I confirm that the note above accurately reflects all work, treatment, procedures, and medical decision making performed by me. The chart was completed utilizing [employer] voice recognition software. Grammatical errors, random word insertions, pronoun errors, and incomplete sentences are an occasional consequence of this system due to software limitations, ambient noise, and hardware issues. Any formal questions or concerns about the content, text, or information contained within the body of this dictation should be directly addressed to the physician for clarification. Departure Information Dispostion Home / Self-Care Referrals Cinthia Gramajo, C.R.N.P. (PCP) Forms Call Back Authorization, HOME CARE DOCUMENTATION FORM, IMPORTANT VISIT INFORMATION Patient Instructions Formerly [facility], [facility]
--- NOTE | 2018-01-15 20:13 | DIAGNOSTIC IMAGING REPORT ---
CHEST 2 VIEWS ROUTINE CLINICAL HISTORY: pain on palpation R anterior chest s/p cleaning pain COMPARISON STUDY: No previous studies for comparison. FINDINGS: The bones soft tissues and hemidiaphragms are normal. The cardiomediastinal silhouette is normal. The lungs are clear. The pulmonary vasculature is normal. IMPRESSION: Negative chest. The above report was generated using voice recognition software. It may contain grammatical, syntax or spelling errors. Electronically signed by: Kolton Devine M.D. 01/15/2018 8:12 PM Dictated Date/Time: 01/15/2018 8:12 PM
[2018-01-15 20:36] VITALS: BP 153/87
== END 2018-01-15 20:35 | disposition home or self-care (01) ==
LOC: C.EDB 19:40 → C.EDC 20:35
DX: R07.89 Other chest pain (principal); F17.210 Nicotine dependence, cigarettes, uncomplicated; Z82.49 Family history of ischemic heart disease and other diseases of the circulatory system; Z83.3 Family history of diabetes mellitus